=== PATIENT | female | born 1950 | race American Indian/Alaskan Native ===

== ENCOUNTER 2017-09-29 09:14 | Outpatient (CLI) | payer MEDICARE ==
--- NOTE | 2017-09-29 14:50 | Mammography Report ---
BONE DENSITY STUDY: DEFINITIONS: BMD = Bone Mineral Density T-score = BMD related to mean peak bone mass of young adult (mean expressed in Standard Deviation) Z-score = Age matched BMD expressed in SD World Health Organization (WHO) Diagnostic Criteria Normal T-score > -1 SD Osteopenia T-score between -1 and -2.4 SD Osteoporosis T-score -2.5 SD or below FINDINGS: The weighted average BMD of lumbar spine L1-L4 is 1.26 with a T-score of 1.9. The weighted average BMD of hip is 1.12 with a T-score of 1.5. IMPRESSION: The patient's T-score is diagnostic for normal bone density and low relative risk for fracture. NOTE: BMD is not the only risk factor for fracture; also consider factors such as the patient's age, risk of falling, previous osteoporotic fracture, family history of osteoporotic fractures, current smoker, and low body weight. Kapoor's triangle is a region of interest in femur, predominantly of trabecular bone. It is not a true anatomic site, and [facility] does not recommend its use clinically.
== END 2017-09-29 09:15 | disposition home or self-care (01) ==
LOC: MAMMO 09:14
PROVIDERS: ATTEND Internal Medicine
DX: Z12.31 Encounter for screening mammogram for malignant neoplasm of breast (principal); Z78.0 Asymptomatic menopausal state
CPT/HCPCS: 77080

== ENCOUNTER 2019-05-04 08:58 | Outpatient (CLI) | payer OTHER | END 2019-05-04 08:59 | disposition home or self-care (01) | LOC: LABHHL 08:58 | PROVIDERS: ATTEND Surgery | DX: C50.911 Malignant neoplasm of unspecified site of right female breast (principal); I11.0 Hypertensive heart disease with heart failure; I50.9 Heart failure, unspecified; Z90.710 Acquired absence of both cervix and uterus | CPT/HCPCS: 88305; 88341; 88342 ==

== ENCOUNTER 2019-06-23 10:49 | Outpatient (CLI) | payer OTHER ==
--- NOTE | 2019-06-23 14:10 | Ultrasound Report ---
COMPLETE BILATERAL BREAST ULTRASOUND HISTORY: Newly diagnosed right breast cancer. COMPARISON: 04/30/2019 and 05/03/2019 right mammograms. FINDINGS: Complete sonographic evaluation of the right breast including imaging of the four quadrant s and subareolar areas reveals solid irregular hypoechoic mass at 10:00 8 cm from the nipple measurin g 3.3 x 2.5 x 2.1 cm. It correlates with the known cancer. An irregular solid mass at 11:00 4 cm from the nipple measures 1.4 x 0.9 x 1.2 cm and correlates with a known cancer. No other mass or other si gnificant finding in the right breast. Ultrasound of the right axilla demonstrated no suspicious lymp h nodes. Complete sonographic evaluation of the left breast including imaging of the four quadrants and subare olar areas reveals no distinct abnormality. No mass, cyst or suspicious shadowing. Ultrasound of the left axilla demonstrated no suspicious lymph nodes. IMPRESSION: 2 known right breast cancers and no additional suspicious finding in either breast. No ricci spicious lymph nodes. BIRADS 6: Known biopsy proven malignancy. Signer Name: Zoltan Manriquez MD Signed: 06/23/2019 2:06 PM Workstation Name: [id number]
== END 2019-06-23 10:50 | disposition home or self-care (01) ==
LOC: SPVWC 10:49
PROVIDERS: ATTEND Surgery
DX: C50.411 Malignant neoplasm of upper-outer quadrant of right female breast (principal); I25.10 Atherosclerotic heart disease of native coronary artery without angina pectoris; E11.9 Type 2 diabetes mellitus without complications; I10 Essential (primary) hypertension; E66.01 Morbid (severe) obesity due to excess calories; E78.5 Hyperlipidemia, unspecified; Z88.8 Allergy status to other drugs, medicaments and biological substances

== ENCOUNTER 2019-07-02 15:13 | Outpatient (CLI) | payer OTHER | END 2019-07-02 15:14 | disposition home or self-care (01) | LOC: LABHHL 15:13 | PROVIDERS: ATTEND Surgery | DX: N63.11 Unspecified lump in the right breast, upper outer quadrant (principal) | CPT/HCPCS: 88305; 88341; 88342 ==

== ENCOUNTER 2019-08-02 06:06 | Observation (INO) | payer OTHER ==
[2019-07-28 14:26] LABS: Calcium 9.8 mg/dL (8.4-10.2)
[2019-07-28 14:27] LABS: Basophils # (Auto) 0.1 K/mm3 (0.0-0.1); Basophils % (Auto) 0.7 % (0.0-1.8); Eosinophils # (Auto) 0.1 K/mm3 (0.0-0.4); Eosinophils % (Auto) 1.2 % (0.0-4.3); Hematocrit 36.4 % (30.3-42.9); Hemoglobin 11.7 gm/dl (10.1-14.3); Lymphocytes # (Auto) 2.8 K/mm3 (1.2-5.4); Lymphocytes % (Auto) 35.8 % (13.4-35.0); Mean Corpuscular HGB Conc 32 % (30-34); Mean Corpuscular Volume 90 fl (79-97); Monocytes # (Auto) 0.5 K/mm3 (0.0-0.8); Monocytes % (Auto) 6.5 % (0.0-7.3); Platelet Count 252 K/mm3 (140-440); Red Blood Count 4.06 M/mm3 (3.65-5.03); Red Cell Distribution Width 14.9 % (13.2-15.2)
--- NOTE | 2019-07-28 14:37 | Anesthesia Consultation ---
Anesthesia Consult and Med Hx Date of service: 07/28/19 - Airway Anesthetic Teeth Evaluation: Good ROM Head & Neck: Adequate Mental/Hyoid Distance: Adequate Mallampati Class: Class II Intubation Access Assessment: Good - Pulmonary Exam CTA: Yes - Cardiac Exam Cardiac Exam: RRR - Pre-Operative Health Status ASA Pre-Surgery Classification: ASA3 Proposed Anesthetic Plan: General Nerve Block: PEC Block - Pulmonary Hx Smoking: No Hx Asthma: No COPD: No Hx Pneumonia: No Hx Sleep Apnea: Yes (DX SLEEP APNEA WITH CPAP USE.) - Cardiovascular System Hx Hypertension: Yes Hx Coronary Artery Disease: Yes Hx Heart Attack/AMI: Yes (02/2016) Hx Percutaneous Transluminal Coronary Angioplasty (PTCA): Yes (2017) Hx Pacemaker: No Hx Internal Defibrillator: No Hx Peripheral Vascular Disease: Yes (LEGS) - Central Nervous System Hx Back Pain: Yes Hx Psychiatric Problems: No - Endocrine Hx End Stage Renal Disease: No - Hematic Hx Anemia: Yes - Other Systems Hx Cancer: Yes - Additional Comments Anesthesia Medical History Comments: CHF EF 55%, CAD s/p STENT, S/P NH cardiac clearance moderate risk- Dr Granados, WEI on Cpap, DM, CKD stage 3
[~2019-08-02 06:06] MED LIST: LIDOCAINE (1%) 10 MG/1 ML VIAL 20 ML MDV INFILTRATI NR; MIDAZOLAM 2 MG/2 ML INJ IV NR; SODIUM CHLORIDE 0.9% 1000 ML 1,000 ML IV SCH; ceFAZolin/STERILE WATER 2 GM/20 ML SYRINGE IV NR
[2019-08-02] MEDS ORDERED: fentaNYL 100 MCG/2 ML INJ IV SCH (06:37)
[2019-08-02] MEDS ORDERED: BACTERIOSTATIC SODIUM CHLORIDE 0.9% 30 ML VIAL INFILTRATI ONE (06:37)
[2019-08-02] MEDS ORDERED: ceFAZolin/STERILE WATER 2 GM/20 ML SYRINGE IV NR (07:05)
[2019-08-02 07:11] LABS: INR 0.81 (0.87-1.13)
[2019-08-02] MEDS ORDERED: ONDANSETRON 4 MG/2 ML INJ IV PRN ×2 (07:12→11:01)
--- NOTE | 2019-08-02 07:12 | Anesthesia Day of Surgery ---
Anesthesia Day of Surgery - Day of Surgery Patient Examined: Yes Patient H&P Reviewed: Yes Patient is NPO: Yes
[2019-08-02] MEDS ORDERED: BUPIVACAINE-EPINEPHRINE/PF 0.5%-1:200,000 (30 ML) VIAL INFILTRATI ONE (07:19)
[2019-08-02] MEDS ORDERED: ROCURONIUM 50 MG/5 ML INJ IV ONE (07:21)
[2019-08-02] MEDS ORDERED: fentaNYL 100 MCG/2 ML INJ ONE (07:21)
[2019-08-02] MEDS ORDERED: PROPOFOL 200 MG/20 ML VIAL IV ONE (07:21)
[2019-08-02] MEDS ORDERED: LIDOCAINE MPF (2%) 20 MG/1 ML VIAL 5 ML ONE (07:21)
[2019-08-02] MEDS ORDERED: METHYLENE BLUE 50 MG/10 ML AMP ONE (07:27)
[2019-08-02] MEDS ORDERED: SODIUM CHLORIDE P/F VIAL 10 ML 10 ML ONE (07:27)
[2019-08-02] MEDS ORDERED: ePHEDrine SULFATE 50 MG/1 ML INJ ONE (09:14)
[2019-08-02] MEDS ORDERED: METHYLENE BLUE 50 MG/10 ML AMP IV ONE (09:50)
[2019-08-02] MEDS ORDERED: SODIUM CHLORIDE 0.9% P/F 10 ML VIAL INFILTRATI ONE (09:50)
[2019-08-02] MEDS ORDERED: WATER FOR IRRIG STERILE 1,500 ML BOTTLE IR ONE (09:51)
[2019-08-02] MEDS ORDERED: PHENYLEPHRINE/NS 1,000 MCG/10 ML SYRINGE (OR USE) IV ONE (10:16)
[2019-08-02] MEDS ORDERED: NEOSTIGMINE 10MG/10 ML INJ MDV ONE (10:17)
[2019-08-02] MEDS ORDERED: ONDANSETRON 4 MG/2 ML INJ ONE (10:17)
[2019-08-02] MEDS ORDERED: dexAMETHasone 20 MG/5 ML VIAL ONE (10:17)
[2019-08-02] MEDS ORDERED: GLYCOPYRROLATE 0.4 MG/2 ML INJ ONE (10:17)
--- NOTE | 2019-08-02 10:38 | Mammography Report ---
SPECIMEN RADIOGRAPH RIGHT BREAST INDICATION: POST EXC BX. COMPARISON: 07/15/2019 right mammogram FINDINGS: A spiculated mass with a biopsy clip and a second spiculated mass with a biopsy clip are identified w ithin the specimen. Extensive calcifications with benign morphology. IMPRESSION: 1. Excision of the known cancers.. Signer Name: Zoltan Manriquez MD Signed: 08/02/2019 10:34 AM Workstation Name: [id number]
[2019-08-02] MEDS ORDERED: METOCLOPRAMIDE 10 MG TAB PO PRN (11:01)
[2019-08-02] MEDS ORDERED: oxyCODONE /ACETAMINOPHEN 5-325MG TAB PO PRN (11:01)
[2019-08-02] MEDS ORDERED: ACETAMINOPHEN 325 MG TAB PO PRN (11:01)
[2019-08-02] MEDS ORDERED: diphenhydrAMINE 25 MG CAP PO PRN (11:01)
--- NOTE | 2019-08-02 11:09 | Operative Report ---
Operative Report Operative Report: Operative Report: Date of Service: August 02, 2019 Preoperative diagnosis: Multifocal right breast cancer of the upper outer quadrant Postoperative diagnosis: Same Procedure: Right total mastectomy with sentinel lymph node biopsy Surgeon: Prabha Eaton M.D. Flower Buncher Or Picker: Melody Washington M.D. Anesthesia: Gen. Findings: Right breast clips present within right total mastectomy. 2 sentinel lymph nodes identified and negative for malignancy on frozen section of pathology Complications: None Drains: 19 [place] LIBORIO Estimated blood loss: 50 cc Disposition: PACU in good condition Indications for operative procedure: This is a 68-year-old lady with newly diagnosed stage II multifocal right breast cancer of the upper outer quadrant, IDCA grade 2 [id number] ER positive. Patient with multifocal right breast cancer of 10:00 position and 11:00 position with palpable breast cancer mass of 10:00 position. She wished to proceed with a mastectomy and understands the role of possible adjuvant chemotherapy and radiation therapy if indicated. She has met with medical oncology as well. Patient will undergo delayed plastic surgery. She wished to proceed with the above procedure. Procedure in detail: The patient was taken to the operating room and was placed supine. Gen. anesthesia was administered. The right nipple was injected with radioisotope and 1 cc of methylene blue. Right breast and axilla were prepped and draped in the normal sterile operative fashion. Timeout was performed. Anesthesia placed right pectoral muscle block prior to going to the operating room. Typical mastectomy incision marking was made with incision encompassing known areas of cancer. Attention was taken towards the right breast first. Gamma probe scanned the axilla with area of hotspot identified. A skin incision was made with a 10 blade knife and dissection taken down to the subcutaneous tissues. First began raising of the superior flap to the level of the clavicle superiorly and posteriorly to the pectoralis muscle. Followed by raising of the medial flap to the level of the sternum and posteriorly to the pectoralis muscle. Followed by raising of the lateral flap to the level of the latissimus dorsi muscle and taken down posteriorly. The axillary fascia in the axilla was opened and the gamma probed was inserted into the axilla, 2 sentinel lymph nodes were identified with the gamma probe and nodes noted for blue dye. SLNs were dissected free and sent to pathology. All remaining counts were less than 10% of highest count. Lymph nodes were sent to pathology with findings negative for malignancy noted on frozen section. Then proceeded with raising of the inferior flap to the level of the inframammary fold taken posterior to the pectoralis muscle. The mastectomy/breast was removed from the pectoralis muscle without incident. The specimen was appropriately marked and sent to radiology with clips present and then sent to pathology.The chest wall was irrigated and suctioned. Hemostasis was obtained. One 19 [place] LIBORIO drain was placed. The subcutaneous tissues were closed using an interrupted 3-0 Vicryl followed by closing of the skin using a running 4-0 Monocryl and dermabond. She tolerated surgery very well and was awaken from anesthesia without any complications and then transported to PACU in good condition.
--- NOTE | 2019-08-02 11:12 | Short Stay Summary ---
Short Stay Documentation Date of service: 08/02/19 - History H&P: obtained from office - Allergies and Medications Current Medications: Allergies lisinopril Allergy (Verified 07/27/19 17:48) COUGH simvastatin Adverse Reaction (Verified 07/27/19 17:48) FATIGUE Home Medications Medication Instructions Recorded Confirmed Last Taken Type Aspirin [Aspirin BABY CHEW TAB] 81 mg PO QDAY #30 tab.chew 03/06/16 07/27/19 07/28/19 08:00 Rx Prasugrel [Effient] 10 mg PO QDAY #30 tablet 03/06/16 08/02/19 07/28/19 08:00 Rx DULoxetine [Cymbalta] 30 mg PO BID 06/17/18 07/27/19 08/01/19 08:00 History Ezetimibe [Zetia] 10 mg PO QDAY 06/17/18 07/27/19 08/01/19 08:00 History ISOSORBIDE MONOnitrate [Imdur ER] 30 mg PO DAILY 06/17/18 07/27/19 06/16/18 History Insulin Glargine [Lantus VIAL] 50 units SUB-Q QHS 06/17/18 07/27/19 08/01/19 08:00 History Insulin Regular, Human [Novolin R] 1 unit SUB-Q BID 06/17/18 07/27/19 08/01/19 08:00 History Metoprolol [Lopressor TAB] 25 mg PO DAILY 06/17/18 07/27/19 08/02/19 05:45 History Cholecalciferol Vit D3 [Vitamin D3 1,000 unit PO QDAY 07/27/19 07/27/19 08/01/19 08:00 History 1,000 UNIT TAB] Cyanocobalamin (Vitamin B-12) 2,500 mcg PO DAILY 07/27/19 07/27/19 08/01/19 08: 00 History [Vitamin B12] Furosemide [Lasix TAB] 40 mg PO DAILY 07/27/19 07/27/19 08/01/19 08:00 History HYDROcodone/APAP 5-325 [[place] 1 each PO Q6HR PRN 07/27/19 07/27/19 08/01/19 08:00 History 5/325] Losartan [Cozaar] 50 mg PO QDAY 1207/27/19 08/02/19 05:45 History Pravastatin [Pravachol] 40 mg PO QHS 07/27/19 07/27/19 08/02/19 05:45 History Ubidecarenone/Vit E Acet [Co Q-10 1 each PO DAILY 07/27/19 07/27/19 08/01/19 08:00 History 100 mg Softgel] Active Medications Cefazolin Sodium (Ancef/Sterile Water 2 Gm/20 Ml) 2 gm IV PREOP NR Stop: 08/02/19 16:00 Fentanyl (Sublimaze) 100 mcg IV ONCE ONEL Stop: 08/02/19 23:00 Last Admin: 08/02/19 07:28 Dose: 100 mcg Documented by: Hydromorphone HCl (Dilaudid) 0.5 mg IV Q10MIN PRN PRN Reason: Pain , Severe (7-10) Stop: 08/02/19 22:00 Sodium Chloride (Nacl 0.9% 1000 Ml) 1,000 mls @ 75 mls/hr IV DIRECT ONEL Last Admin: 08/02/19 07:00 Dose: 75 mls/hr Documented by: Lidocaine (Xylocaine 1% 20 Ml) 10 ml INFILTRATI PREOP NR Stop: 08/02/19 23:44 Midazolam HCl (Versed) 2 mg IV PREOP NR Stop: 08/02/19 23:00 Last Admin: 08/02/19 07:28 Dose: 2 mg Documented by: Ondansetron HCl (Zofran) 4 mg IV ONCE PRN PRN Reason: Nausea And Vomiting Stop: 08/02/19 16:00 - Brief post op/procedure progress note Date of procedure: 08/02/19 Pre-op diagnosis: Right breast cancer Post-op diagnosis: same Procedure: Right total mastectomy with SLNB Anesthesia: GETA Findings: 2 SLNs and negative; 2 clips within mastectomy Surgeon: RADHA YOUNG (s=) Buckle Sorter: TAMMI SMITH Estimated blood loss: other (50 cc) Pathology: list (right mastectomy, x2 SLNs) Specimen disposition: to lab Condition: stable - Disposition Condition at discharge: Good Disposition: DC/TX-02 SHRT-TRM GEN HOSP IP Short Stay Discharge Plan Activity: other (no heavy lifting) Diet: regular Wound: keep clean and dry Follow up with: BRIEN SMITH MD [Primary Care Provider] - 7 Days RADHA YOUNG MD [Staff Physician] - 7 Days
[2019-08-02] MEDS ORDERED: DEXTROSE 50% IN WATER (25GM) 50 ML SYRINGE IV PRN (11:16)
[2019-08-02] MEDS: HYDROmorphone 1 MG/1 ML INJ IV PRN ×2 (11:44→11:55)
[2019-08-02] MEDS ORDERED: INSULIN REGULAR, HUMAN 100 UNITS/1 ML SUB-Q ONE ×2 (12:00→14:08)
[2019-08-02] MEDS: LACTATED RINGERS 1,000 ML IV SCH (14:47)
[2019-08-02] MEDS: INSULIN REGULAR, HUMAN 100 UNITS/1 ML SUB-Q SCH ×3 (16:12→22:00)
[2019-08-02] MEDS: MORPHINE 2 MG/1 ML INJ IV PRN ×2 (16:14→21:25)
[2019-08-02] MEDS: DOCUSATE SODIUM 100 MG CAP PO SCH (21:26)
[2019-08-02] MEDS: DULoxetine 30 MG CAP PO SCH (21:26)
[2019-08-02] MEDS ORDERED: PRAVASTATIN 40 MG TAB PO SCH (22:00)
--- NOTE | 2019-08-02 22:37 | Post Anesthesia Evaluation ---
- Post Anesthesia Evaluation Patient Participated: Yes Airway Patent: Yes Stable Respiratory Function: Yes Nausea/Vomiting: No Temp > 96.8F: Yes Pain Manageable: Yes Adequeate Hydration: Yes Anesthesia Complications: No Block Receding Appropriately: Yes Patient on Ventilator: No
[2019-08-03] MEDS: LACTATED RINGERS 1,000 ML IV SCH (01:35)
[2019-08-03] MEDS: MORPHINE 2 MG/1 ML INJ IV PRN (04:35)
[2019-08-03] MEDS: INSULIN REGULAR, HUMAN 100 UNITS/1 ML SUB-Q SCH ×2 (05:51→12:02)
--- NOTE | 2019-08-03 08:24 | Progress Note ---
Assessment and Plan This is a 68 year old lady with multifocal right breast cancer of the upper outer quadrant, Stage II POD#1 right total mastectomy with SLNB. No acute events overnight. 1. Pain in good control. 2. Right chest incision healing well, skin well perfused, no hematoma; incision clean, dry and intact. 3. OOB to hallway. 4. LIBORIO drain education. 5. D/C planning for today. Subjective Date of service: 08/03/19 Principal diagnosis: Right breast cancer-multifocal upper outer quadrant Interval history: POD#1 Right total mastectomy with SLNB Objective - Constitutional Vitals: Vital Signs - 12hr 08/03/19 08/03/19 08/03/19 00:19 04:26 06:57 Temperature 97.7 F 97.9 F 97.5 F L Pulse Rate 90 104 H 90 Respiratory 18 18 20 Rate Blood Pressure 117/60 124/65 128/57 O2 Sat by Pulse 96 97 100 Oximetry General appearance: Present: no acute distress - EENT Eyes: PERRL, EOM intact ENT: hearing intact, clear oral mucosa Ears: bilateral: normal - Neck Neck: supple, normal ROM - Respiratory Respiratory effort: normal - Breasts Breasts: other (right chest incision healing well; no hematoma; incision clean, dry and intact; skin well perfused; LIBORIO drain to bulb suction) - Cardiovascular Rhythm: regular Extremities: no ischemia, pulses intact, pulses symmetrical, No edema, normal temperature, normal color, Full ROM - Gastrointestinal General gastrointestinal: Present: soft, non-tender, non-distended Rectal Exam: deferred - Genitourinary Female genitourinary: deferred - Integumentary Integumentary: clear, warm, dry - Musculoskeletal Musculoskeletal: strength equal bilaterally - Neurologic Neurologic: CNII-XII intact - Psychiatric Psychiatric: appropriate mood/affect, intact judgment & insight, memory intact, cooperative - Labs CBC & Chem 7: 07/28/19 13:30 07/28/19 13:30 Labs: Abnormal lab results 08/02/19 08/02/19 08/02/19 Range/Units 11:30 13:15 16:18 POC Glucose 251 H 225 H 206 H (70-105) 08/02/19 08/03/19 Range/Units 21:16 07:08 POC Glucose 214 H 158 H (70-105) Medications & Allergies - Medications Allergies/Adverse Reactions: Allergies lisinopril Allergy (Verified 07/27/19 17:48) COUGH simvastatin Adverse Reaction (Verified 07/27/19 17:48) FATIGUE Home Medications: Home Medications Medication Instructions Recorded Confirmed Last Taken Type Aspirin [Aspirin BABY CHEW TAB] 81 mg PO QDAY #30 tab.chew 03/06/16 07/27/19 07/28/19 08:00 Rx Prasugrel [Effient] 10 mg PO QDAY #30 tablet 03/06/16 08/02/19 07/28/19 08:00 Rx DULoxetine [Cymbalta] 30 mg PO BID 06/17/18 07/27/19 08/01/19 08:00 History Ezetimibe [Zetia] 10 mg PO QDAY 06/17/18 07/27/19 08/01/19 08:00 History ISOSORBIDE MONOnitrate [Imdur ER] 30 mg PO DAILY 06/17/18 07/27/19 06/16/18 History Insulin Glargine [Lantus VIAL] 50 units SUB-Q QHS 06/17/18 07/27/19 08/01/19 08:00 History Insulin Regular, Human [Novolin R] 1 unit SUB-Q BID 06/17/18 07/27/19 08/01/19 08:00 History Metoprolol [Lopressor TAB] 25 mg PO DAILY 06/17/18 07/27/19 08/02/19 05:45 History Cholecalciferol Vit D3 [Vitamin D3 1,000 unit PO QDAY 07/27/19 07/27/19 08/01/19 08:00 History 1,000 UNIT TAB] Cyanocobalamin (Vitamin B-12) 2,500 mcg PO DAILY 07/27/19 07/27/19 08/01/19 08:00 History [Vitamin B12] Furosemide [Lasix TAB] 40 mg PO DAILY 07/27/19 07/27/19 08/01/19 08:00 History HYDROcodone/APAP 5-325 [[place] 1 each PO Q6HR PRN 07/27/19 07/27/19 08/01/19 08:00 History 5/325] Losartan [Cozaar] 50 mg PO QDAY 07/27/19 07/27/19 08/02/19 05:45 History Pravastatin [Pravachol] 40 mg PO QHS 07/27/19 07/27/19 08/02/19 05:45 History Ubidecarenone/Vit E Acet [Co Q-10 1 each PO DAILY 07/27/19 07/27/19 08/01/19 08:00 History 100 mg Softgel] HYDROcodone/APAP 5-325 [[place] 1 each PO Q6HR PRN #15 tablet 08/03/19 Unknown Rx 5/325] cephALEXin [Keflex] 500 mg PO Q12HR #14 cap 08/03/19 Unknown Rx Active Medications: Generic Name Dose Route Start Last Admin Trade Name Freq PRN Reason Stop Dose Admin Acetaminophen 650 mg 08/02/19 11:01 Tylenol PO Q6H PRN Pain MILD(1-3)/Fever >100.5/TORRES Cholecalciferol 1,000 unit 08/03/19 10:00 Vitamin D3 PO QDAY ONEL Cyanocobalamin 2,500 mcg 08/03/19 10:00 Vitamin B-12 PO QDAY ONEL Dextrose 50 ml 08/02/19 11:16 D50w (25gm) Syringe IV Q30MIN PRN Hypoglycemia Protocol Diphenhydramine HCl 25 mg 08/02/19 11:01 Benadryl PO Q8H PRN Itching Docusate Sodium 100 mg 08/02/19 22:00 08/02/19 21:26 Colace PO 100 mg BID ONEL Administration Duloxetine HCl 30 mg 08/02/19 22:00 08/02/19 21:26 Cymbalta PO 30 mg BID ONEL Administration Ezetimibe 10 mg 08/03/19 10:00 Zetia PO QDAY ONEL Furosemide 40 mg 08/03/19 10:00 Lasix PO DAILY ONEL Sodium Chloride 1,000 mls @ 75 mls/hr 07/28/19 14:45 08/02/19 07:00 Nacl 0.9% 1000 Ml IV 75 mls/hr DIRECT ONEL Administration Lactated Ringer's 1,000 mls @ 125 mls/hr 08/02/19 12:00 08/03/19 01:35 Lactated Ringers IV 125 mls/hr DIRECT ONEL Administration Insulin Human Regular 0 units 08/02/19 12:00 08/03/19 05:51 Humulin R SUB-Q 2 units Q6HR ONEL Administration Protocol Isosorbide Mononitrate 30 mg 08/03/19 10:00 Imdur PO DAILY [facility] Losartan Potassium 50 mg 08/03/19 10:00 Cozaar PO QDAY [facility] Metoclopramide HCl 10 mg 08/02/19 11:01 Reglan PO Q6H PRN Nausea And Vomiting Metoprolol Tartrate 25 mg 08/03/19 10:00 Metoprolol PO DAILY [facility] Morphine Sulfate 2 mg 08/02/19 11:15 08/03/19 04:35 Morphine IV 2 mg Q4H PRN Administration Pain, Moderate (4-6) Ondansetron HCl 4 mg 08/02/19 11:01 Zofran IV Q8H PRN N/V unrelieved by Reglan Oxycodone/Acetaminophen 1 tab 08/02/19 11:01 Percocet 5/325 PO Q6H PRN Pain, Moderate (4-6) Pravastatin Sodium 40 mg 08/02/19 22:00 08/02/19 21:32 Pravachol PO 40 mg QHS [facility] Administration Sodium Chloride 10 ml 08/02/19 11:01 Sodium Chloride Flush Syringe 10 Ml IV PRN PRN LINE FLUSH
[2019-08-03] MEDS: DULoxetine 30 MG CAP PO SCH (09:17)
[2019-08-03] MEDS ORDERED: CHOLECALCIFEROL (VIT D3) 1000 UNIT TAB PO SCH (10:00)
[2019-08-03] MEDS ORDERED: METOPROLOL TARTRATE 25 MG TAB PO SCH (10:00)
[2019-08-03] MEDS ORDERED: VIT E ACET PO SCH (10:00)
[2019-08-03] MEDS ORDERED: CYANOCOBALAMIN 2500 MCG PO SCH (10:00)
[2019-08-03] MEDS ORDERED: LOSARTAN 25 MG TAB PO SCH (10:00)
[2019-08-03] MEDS ORDERED: CYANOCOBALAMIN (VIT B-12) 1000 MCG TAB PO SCH (10:00)
[2019-08-03] MEDS ORDERED: FUROSEMIDE 40 MG TAB PO SCH (10:00)
[2019-08-03] MEDS ORDERED: EZETIMIBE 10 MG TAB PO SCH (10:00)
[2019-08-03] MEDS ORDERED: UBIDECARENONE PO SCH (10:00)
[2019-08-03] MEDS: DOCUSATE SODIUM 100 MG CAP PO SCH (11:01)
[2019-08-03 12:53] VITALS: BP 142/48
== END 2019-08-03 13:07 | disposition home or self-care (01) ==
LOC: OR 06:06 → 3B-SURG 11:01
PROVIDERS: ADMIT Surgery; ATTEND Surgery
DX: C50.411 Malignant neoplasm of upper-outer quadrant of right female breast (principal); E11.9 Type 2 diabetes mellitus without complications; Z79.82 Long term (current) use of aspirin; Z79.4 Long term (current) use of insulin
CPT/HCPCS: 19303; 36415; 38525; 38792; 64450; 76098; 78800; 80048; 82962; 85025; 85610; 85730; 88305; 88307; 88331; 88333; 88342; 96372; 96374; 96375; 96376; A9270; A9541; G0378; J1170; J2250; J2270; J2370; J2405; J2704; J2710; J3010; J7030; J7120; Q9968; 88341; J1100; J1815